=== PATIENT | female | born 1990 | race Caucasian/White ===

== ENCOUNTER 2017-09-01 19:59 | Inpatient (IN) | payer BC ==
[2017-09-01] MEDS ORDERED: Butorphanol 1 MG/ML SDV IM ONE (23:07)
[2017-09-01] MEDS ORDERED: hydrOXYzine Pamoate 25 MG Cap PO ONE (23:08)
[2017-09-02] MEDS ORDERED: Water For Irrigation,Sterile 1,000 ML Container IRR PRN (05:05)
[2017-09-02] MEDS ORDERED: Tranexamic Acid 1,000 MG in Sodium Chloride 0.9% 100 ML IV PRN (05:05)
[2017-09-02] MEDS ORDERED: Nalbuphine 10 MG/1 ML Vial IVPUSH PRN (05:05)
[2017-09-02] MEDS ORDERED: Sodium Chloride 0.9% 10 ML Syringe FLUSH PRN (05:05)
[2017-09-02] MEDS ORDERED: Carboprost Tromethamine 250 MCG/1 ML Amp IM PRN (05:05)
[2017-09-02] MEDS ORDERED: Butorphanol 1 MG/ML SDV IVPUSH PRN (05:05)
[2017-09-02] MEDS ORDERED: Lidocaine 1% 50 ML MDV INJECT PRN (05:05)
[2017-09-02] MEDS ORDERED: Methylergonovine 0.2 MG/1 ML Amp IM PRN (05:05)
[2017-09-02] MEDS ORDERED: Misoprostol 200 MCG Tab PO PRN (05:05)
[2017-09-02] MEDS ORDERED: Sodium Chloride 0.9% 2.5 ML Syringe FLUSH PRN (05:05)
[2017-09-02] MEDS ORDERED: Oxytocin/0.9 % Sodium Chloride 30 UNIT/500 ML BAG IV SCH ×2 (05:15→09:45)
[2017-09-02] MEDS: Lactated Ringers 1,000 ML IV SCH ×2 (08:22→09:20)
[2017-09-02] MEDS ORDERED: Terbutaline 1 MG/ML SDV SUBCUT PRN (09:36)
--- NOTE | 2017-09-02 09:36 | PCM.PREANE ---
Preanesthetic Assessment - Anesthesia/Transfusion/Family Hx Family History of Anesthesia Reaction: No - Review of Systems General: No Symptoms Pulmonary: No Symptoms Cardiovascular: No Symptoms Gastrointestinal: No Symptoms Neurological: No Symptoms Other: Reports: None (Denies any personal or family hx of bleeding or clotting problems) - Physical Assessment Height: 1.68 m Weight: 86.183 kg ASA Class: 2 Mental Status: Alert & Oriented x3 Airway Class: Mallampati = 2 Dentition: Reports: Normal Dentition ROM/Head Extension: Full - Lab Values: Laboratory Last Values WBC 12.49 K/uL (4.0-11.0) H 09/02/17 05:47 RBC 4.31 M/uL (4.30-5.90) 09/02/17 05:47 Hgb 12.8 g/dL (12.0-16.0) 09/02/17 05:47 Hct 37.0 % (36.0-46.0) 09/02/17 05:47 MCV 85.8 fL (80.0-98.0) 09/02/17 05:47 MCH 29.7 pg (27.0-32.0) 09/02/17 05:47 MCHC 34.6 g/dL (31.0-37.0) 09/02/17 05:47 RDW Std Deviation 41.8 fl (28.0-62.0) 09/02/17 05:47 RDW Coeff of [place] 14 % (11.0-15.0) 09/02/17 05:47 Plt Count 255 K/uL (150-400) 09/02/17 05:47 MPV 10.20 fL (7.40-12.00) 09/02/17 05:47 Nucleated RBC % 0.0 /100WBC 09/02/17 05:47 Nucleated RBCs # 0 K/uL 09/02/17 05:47 Blood Type A POSITIVE 09/02/17 05:47 Antibody Screen NEGATIVE 09/02/17 05:47 - Allergies Allergies/Adverse Reactions: Allergies Allergy/AdvReac Type Severity Reaction Status Date / Time clindamycin Allergy Rash Verified 08/08/17 22:24 - Acknowledgements Anesthesia Type Planned: Epidural Pt an Appropriate Candidate for the Planned Anesthesia: Yes Alternatives and Risks of Anesthesia Discussed w Pt/Guardian: Yes Pt/Guardian Understands and Agrees with Anesthesia Plan: Yes PreAnesthesia Questionnaire HOST/HOSTESS History: Reports: - Past Surgical History Other HEENT Surgeries/Procedures: [place] tooth extraction - SUBSTANCE USE Smoking Status *Q: Never Smoker Recreational Drug Use History: No - HOME MEDS Home Medications: Home Meds Acetaminophen [Tylenol Extra Strength] 500 mg PO Q4H PRN #1 tablet 01/19/15 [Rx] Ibuprofen [Motrin] 800 mg PO Q6H PRN #1 tablet 01/19/15 [Rx] Lanolin [Lansinoh HPA] 1 g TOP ASDIRECTED PRN #1 crm 01/19/15 [Rx] - CURRENT (IN HOUSE) MEDS Current Meds: Current Medications Butorphanol Tartrate (Stadol) 1 mg IVPUSH ASDIRECTED PRN PRN Reason: Pain Carboprost Tromethamine (Hemabate Ds) 250 mcg IM ASDIRECTED PRN PRN Reason: Post Hemorrhage Tranexamic Acid 1,000 mg/ (Sodium Chloride) 110 mls @ 660 mls/hr IV ONETIME PRN PRN Reason: Bleeding Lactated Ringer's (Ringers, Lactated) 1,000 mls @ 150 mls/hr IV ASDIRECTED REAL Last Admin: 09/02/17 09:20 Dose: 150 mls/hr Oxytocin/Sodium Chloride (Oxytocin 30 Unit/500 Ml-Ns) 30 unit in 500 mls @ 999 mls/hr IV TITRATE REAL Lidocaine HCl (Xylocaine 1%) 50 ml INJECT .ONCE PRN PRN Reason: Laceration repair Methylergonovine Maleate (Methergine) 0.2 mg IM ASDIRECTED PRN PRN Reason: Post Hemorrhage Misoprostol (Cytotec) 200 mcg PO .ONCE PRN PRN Reason: Post Hemorrhage Nalbuphine HCl (Nubain) 10 mg IVPUSH ASDIRECTED PRN PRN Reason: Pain (severe 7-10) Sodium Chloride (Saline Flush) 10 ml FLUSH ASDIRECTED PRN PRN Reason: Keep Vein Open Sodium Chloride (Saline Flush) 2.5 ml FLUSH ASDIRECTED PRN PRN Reason: Keep Vein Open Sterile Water (Sterile Water For Irrigation) 1,000 ml IRR ASDIRECTED PRN PRN Reason: delivery Discontinued Medications Butorphanol Tartrate (Stadol) 1 mg IM ONETIME ONE Stop: 09/01/17 23:08 Last Admin: 09/02/17 00:22 Dose: 1 mg Hydroxyzine Pamoate (Vistaril) 25 mg PO ONETIME ONE Stop: 09/01/17 23:09 Last Admin: 09/02/17 00:23 Dose: 25 mg Fentanyl/Bupivacaine HCl (Pwxlqldy-Ojnpf-Ex 2 Mcg/Ml-0.125%) Confirm Administered Dose 100 mls @ as directed MARVIN .STK-MED ONE Stop: 09/02/17 08:31
[2017-09-02] MEDS ORDERED: Benzocaine/Menthol 20%-0.5% Spray 78 GM Cannister TOP PRN (12:12)
[2017-09-02] MEDS ORDERED: Bisacodyl 10 MG Supp RECTAL PRN (12:12)
[2017-09-02] MEDS ORDERED: Lanolin 100% Cream 7 GM Tube TOP PRN (12:12)
[2017-09-02] MEDS ORDERED: Acetaminophen 500 MG Tab PO PRN ×2 (12:12)
[2017-09-02] MEDS ORDERED: Witch Hazel Medicated Pads 40/Jar TOP PRN (12:12)
[2017-09-02] MEDS ORDERED: Docusate Sodium 100 MG Cap PO PRN (12:12)
[2017-09-02] MEDS ORDERED: oxyCODONE 5 MG Tab PO PRN (12:12)
[2017-09-02] MEDS ORDERED: Ibuprofen 400 MG Tab PO PRN (12:12)
[2017-09-02] MEDS ORDERED: Aluminum Hydroxide/Magnesium Hydroxide/Simethicone Susp 30 ML Cup PO PRN (12:12)
--- NOTE | 2017-09-02 14:14 | OR ---
SURGEON: Lenka Méndez M.D. DATE OF PROCEDURE: 09/02/2017 PREOPERATIVE DIAGNOSES: 1. A 39-week intrauterine . 2. Active labor. POSTOPERATIVE DIAGNOSES: 1. A 39-week intrauterine . 2. Active labor. PROCEDURE: Spontaneous vaginal delivery with first-degree midline laceration repaired. ANESTHESIA: Epidural. ESTIMATED BLOOD LOSS: 300 mL. FINDINGS: Term female. scores of 6 at 1 minute and 7 at 5 minutes. Weight is pending. Spontaneous delivery, intact placenta, three-vessel cord. DISPOSITION: to nursery. Mom in LDRP, stable. PROCEDURE IN DETAIL: Maryse is a 27-year-old G2, P1, at 39 weeks' gestational age who I assumed care of mid morning as she was already admitted in labor. Amniotomy performed in the morning and Pitocin had been initiated. Shortly after 11:00 a.m., she was found to be 9 cm and progressed to complete relatively quickly. I was called for delivery. Upon my arrival, the patient was found to be complete, 100% effaced, +2 station. heart tones were in the 140s. Pitocin at 4 milliunits per minute. With contractions, the patient was able to push adequately to the +4 station, delivering the infant's head followed by anterior shoulder, posterior shoulder, and remainder of the body without difficulty. The 's oropharynx and nares were bulb suctioned. Cord was clamped x2 and cut. was crying and pink with good tone as being passed off to her mother with attending nursing staff at her side. Cord arterial, cord venous, and cord blood samplings were obtained. Light suprapubic pressure was applied while the placenta was delivered spontaneously intact after cord arterial, cord venous, cord blood samplings were obtained. Vigorous fundal uterine massage was then applied while 30 units of Pitocin was delivered in 500 mL IV fluid. Upon inspection of cervix, vaginal sidewalls, and perineum, there was found to be a first-degree midline laceration. This was repaired in the usual fashion using 2-0 Monocryl. Hemostasis thereafter was evident. Uterus remained firm. Sponge count was correct. Needle count was correct. The patient remained in LDRP and the in Nursery. GLADYS / JERALD /[id number]
[2017-09-02] MEDS: Ibuprofen 800 MG Tab PO PRN (20:59)
[2017-09-03] MEDS: Ibuprofen 800 MG Tab PO PRN (05:08)
--- NOTE | 2017-09-03 07:52 | PCM48HPAN ---
Post Anesthesia Note - EVALUATION WITHIN 48HRS OF ANESTHETIC Vital Signs in Normal Range: Yes Patient Participated in Evaluation: Yes Respiratory Function Stable: Yes Airway Patent: Yes Cardiovascular Function Stable: Yes Hydration Status Stable: Yes Pain Control Satisfactory: Yes Nausea and Vomiting Control Satisfactory: Yes Mental Status Recovered: Yes Resp Rate: 15 - COMMENTS/OBSERVATIONS Free Text/Narrative:: Patient up walking and in nursery with baby. Denies any complaints.
--- NOTE | 2017-09-03 09:07 | PCM.PNPP ---
- General Info Date of Service: 09/03/17 Functional Status: Reports: Pain Controlled, Tolerating Diet, Ambulating, Urinating - Review of Systems General: Denies: Fever Pulmonary: Denies: Shortness of Breath Cardiovascular: Denies: Chest Pain, Palpitations Gastrointestinal: Denies: Abdominal Pain, Constipation, Nausea, Vomiting Genitourinary: Denies: Flank Pain Neurological: Reports: No Symptoms Psychiatric: Reports: No Symptoms - General Info Date of Service: 09/03/17 - Patient Data Vital Signs - Most Recent: Last Vital Signs Temp 36.4 C 09/03/17 05:00 Pulse 71 09/03/17 05:00 Resp 15 09/03/17 07:52 BP 121/74 09/03/17 05:00 Pulse Ox 97 09/03/17 05:00 Weight - Most Recent: 86.183 kg Lab Results - Last 24 Hours: Laboratory Results - last 24 hr 09/02/17 09/03/17 Range/Units 11:54 05:26 Hgb 13.4 (12.0-16.0) g/dL Hct 39.1 (36.0-46.0) % Cord ABG pH 7.158 L (7.18-7.38) Cord ABG Base Excess -7 (-10--2) Cord VBG pH 7.266 (7.25-7.45) Cord VBG Base Excess -6 (-10--2) Med Orders - Current: Current Medications Acetaminophen (Tylenol Extra Strength) 500 mg PO Q4H PRN PRN Reason: Pain Acetaminophen (Tylenol Extra Strength) 1,000 mg PO Q4H PRN PRN Reason: Pain Last Admin: 09/02/17 23:16 Dose: 1,000 mg Al Hydroxide/Mg Hydroxide (Mag-Al Plus) 30 ml PO Q8H PRN PRN Reason: Heartburn Benzocaine/Menthol (Dermoplast Pain Relief 20%-0.5% [place]) 78 gm TOP ASDIRECTED PRN PRN Reason: Perineal Comfort Measure Last Admin: 09/02/17 20:53 Dose: 1 can Bisacodyl (Dulcolax) 10 mg RECTAL .ONCE PRN PRN Reason: Constipation Carboprost Tromethamine (Hemabate Ds) 250 mcg IM ASDIRECTED PRN PRN Reason: Post Hemorrhage Docusate Sodium (Colace) 100 mg PO BID PRN PRN Reason: Constipation Last Admin: 09/02/17 20:54 Dose: 100 mg Emollient Ointment (Lansinoh Hpa) 0 gm TOP ASDIRECTED PRN PRN Reason: Sore Nipples Tranexamic Acid 1,000 mg/ (Sodium Chloride) 110 mls @ 660 mls/hr IV ONETIME PRN PRN Reason: Bleeding Lactated Ringer's (Ringers, Lactated) 1,000 mls @ 150 mls/hr IV ASDIRECTED REAL Last Admin: 09/02/17 09:20 Dose: 150 mls/hr Oxytocin/Sodium Chloride (Oxytocin 30 Unit/500 Ml-Ns) 30 unit in 500 mls @ 999 mls/hr IV TITRATE REAL Oxytocin/Sodium Chloride (Oxytocin 30 Unit/500 Ml-Ns) 30 unit in 500 mls @ 2 mls/hr IV TITRATE REAL; 2 MUNITS/MIN PRN Reason: Protocol Last Titration: 09/02/17 10:33 Dose: 4 munits/min, 4 mls/hr Ibuprofen (Motrin) 400 mg PO Q4H PRN PRN Reason: Pain Ibuprofen (Motrin) 800 mg PO Q6H PRN PRN Reason: Pain Last Admin: 09/03/17 05:08 Dose: 800 mg Methylergonovine Maleate (Methergine) 0.2 mg IM ASDIRECTED PRN PRN Reason: Post Hemorrhage Misoprostol (Cytotec) 200 mcg PO .ONCE PRN PRN Reason: Post Hemorrhage Oxycodone HCl (Oxycodone) 5 mg PO Q2H PRN PRN Reason: Pain Sodium Chloride (Saline Flush) 10 ml FLUSH ASDIRECTED PRN PRN Reason: Keep Vein Open Sodium Chloride (Saline Flush) 2.5 ml FLUSH ASDIRECTED PRN PRN Reason: Keep Vein Open Witch Rin (Tucks) 1 pad TOP ASDIRECTED PRN PRN Reason: comfort care Discontinued Medications Butorphanol Tartrate (Stadol) 1 mg IM ONETIME ONE Stop: 09/01/17 23:08 Last Admin: 09/02/17 00:22 Dose: 1 mg Butorphanol Tartrate (Stadol) 1 mg IVPUSH ASDIRECTED PRN PRN Reason: Pain Hydroxyzine Pamoate (Vistaril) 25 mg PO ONETIME ONE Stop: 09/01/17 23:09 Last Admin: 09/02/17 00:23 Dose: 25 mg Fentanyl/Bupivacaine HCl (Mipsoulx-Mbgaj-Pb 2 Mcg/Ml-0.125%) Confirm Administered Dose 100 mls @ as directed EP .STK-MED ONE Stop: 09/02/17 08:31 Last Admin: 09/02/17 20:14 Dose: Not Given Lidocaine HCl (Xylocaine 1%) 50 ml INJECT .ONCE PRN PRN Reason: Laceration repair Nalbuphine HCl (Nubain) 10 mg IVPUSH ASDIRECTED PRN PRN Reason: Pain (severe 7-10) Sterile Water (Sterile Water For Irrigation) 1,000 ml IRR ASDIRECTED PRN PRN Reason: delivery Terbutaline Sulfate (Brethine) 0.25 mg SUBCUT ASDIRECTED PRN PRN Reason: Tacysystole - Infant Interaction Disposition, : in Room with Family Support Person: - Recovery Exam Fundal Tone: Firm Fundal Level: 1 Fingerbreadths Below Umbilicus Fundal Placement: Midline Lochia Amount: Scant Lochia Color: Rubra/Red Perineum Description: Other (see below) Other Perinuem Description: 1st degree laceration with repair. Episiotomy/Laceration: Approximated Bladder Status: Voiding Urinary Elimination: Voided - Exam General: Alert, Oriented Lungs: Normal Respiratory Effort Cardiovascular: Regular Rate, Regular Rhythm GI/Abdominal Exam: Soft, Non-Tender Extremities: No: Sher's Sign Neurological: No New Focal Deficit Psy/Mental Status: Alert, Normal Affect, Normal Mood - Problem List & Annotations (1) Vaginal delivery SNOMED Code(s): 791428560 Code(s): O80 - ENCOUNTER FOR FULL-TERM UNCOMPLICATED DELIVERY Status: Acute Current Visit: No - Problem List Review Problem List Initiated/Reviewed/Updated: Yes - My Orders Last 24 Hours: My Active Orders 09/02/17 10:43 Communication Order [RC] PRN 09/02/17 12:12 Patient Status [ADT] Routine May Shower [RC] ASDIRECTED Up ad Deanne [RC] ASDIRECTED Vital Signs [RC] PER UNIT ROUTINE Acetaminophen [Tylenol Extra Strength] 1,000 mg PO Q4H PRN Acetaminophen [Tylenol Extra Strength] 500 mg PO Q4H PRN Alum Hydrox/Mag Hydrox/Simeth [Mag-Al Plus] 30 ml PO Q8H PRN Benzocaine/Menthol [Dermoplast Pain Relief 20%-0.5% [place]] 78 gm TOP ASDIRECTED PRN Bisacodyl [Dulcolax] 10 mg RECTAL .ONCE PRN Docusate Sodium [Colace] 100 mg PO BID PRN Ibuprofen [Motrin] 400 mg PO Q4H PRN Ibuprofen [Motrin] 800 mg PO Q6H PRN Lanolin [Lansinoh HPA] See Dose Instructions TOP ASDIRECTED PRN Witch Rin [Tucks] 1 pad TOP ASDIRECTED PRN oxyCODONE 5 mg PO Q2H PRN Assess Lochia [WOMSER] Per Unit Routine Assess Uterine Involution [WOMSER] Per Unit Routine Ice Therapy [OM.PC] Per Unit Routine Perineal Care [OM.PC] Per Unit Routine Peripheral IV Discontinue [OM.PC] Routine Sitz Bath [OM.PC] Per Unit Routine 09/02/17 17:46 Communication Order [RC] ROUTINE 09/02/17 Lunch Regular Diet [DIET] 09/03/17 09:04 Ready for Discharge [RC] PER UNIT ROUTINE - Assessment Assessment:: PPD 1 status post - Plan Plan:: patient is doing well and would like to go home. Discharge instructions reviewed. Infection and bleeding warnings reviewed. Discharge to home today.
[2017-09-03 09:38] VITALS: BP 116/69
== END 2017-09-03 15:30 | disposition home or self-care (01) | DRG 560 ==
LOC: MW.OBCHECK 19:59 → MW.OB 20:03 → MW.OBCHECK 20:35 → MW.OB 20:35 → OBSVTOIN 09-02 11:54 → MW.OB 09-02 17:07
PROVIDERS: ADMIT Obstetrics & Gynecology; ATTEND Obstetrics & Gynecology
PROC: 10E0XZZ Delivery of Products of Conception, External Approach (ICD-10-PCS; principal; 2017-09-02)
PROC: 0HQ9XZZ Repair Perineum Skin, External Approach (ICD-10-PCS; 2017-09-02)
PROC: 00HU33Z Insertion of Infusion Device into Spinal Canal, Percutaneous Approach (ICD-10-PCS; 2017-09-02)
PROC: 3E0R3BZ Introduction of Anesthetic Agent into Spinal Canal, Percutaneous Approach (ICD-10-PCS; 2017-09-02)
DX: O70.0 First degree perineal laceration during delivery (principal); Z3A.39 39 weeks gestation of pregnancy; Z37.0 Single live birth
CPT/HCPCS: 36415; 51702; 59025; 59409; 82803; 85014; 85018; 85027; 86850; 86900; 86901; A9270-GY; J0595; J2590; J7120